=== PATIENT | male | born 1995 | race Caucasian/White ===

== ENCOUNTER 2016-12-27 20:11 | Emergency (ER) | payer OTHER ==
[2016-12-27 20:15] VITALS: RESP 16
--- NOTE | 2016-12-27 20:35 | ED ---
General Adult HPI - General Chief complaint: Extremity Injury, Lower Stated complaint: left ankle injury Time Seen by Provider: 12/27/16 20:17 Source: patient, RN notes reviewed Mode of arrival: wheelchair Limitations: no limitations - History of Present Illness Initial comments: This is a 21-year-old male who presents to the emergency department with chief complaint of left ankle pain. He reports that his left ankle has been hurting for about one month. Patient states that approximately one month ago at work he fell 7 feet down from a ladder and landed on his left foot. Patient states that today while at home he went up on his tiptoes and has been unable to bear weight onto his left foot. Patient states that he notices left foot and ankle have been swollen today as well. Patient reports there is no pain when he is not bearing weight but rates his pain as 7-8/10 while bearing weight. Denies fever, chills, chest pain, shortness of breath, abdominal pain, nausea or vomiting, constipation or diarrhea, dysuria or hematuria, numbness or tingling, headache or vision changes. - Related Data Previous Rx's Medication Instructions Recorded Amoxicillin/Potassium Clav 1 each PO Q12HR #28 tab 11/24/15 [Augmentin 875-125 Tablet] Hydrocodone/Acetaminophen [[place] 1 each PO Q4HR PRN #10 tab 11/24/15 5-325] Ibuprofen 600 mg PO Q6HR #30 tablet 12/27/16 Allergies Allergy/AdvReac Type Severity Reaction Status Date / Time No Known Allergies Allergy Verified 12/27/16 20:16 Review of Systems ROS Statement: Those systems with pertinent positive or pertinent negative responses have been documented in the HPI. ROS Other: All systems not noted in ROS Statement are negative. Past Medical History Past Medical History: No Reported History History of Any Multi-Drug Resistant Organisms: None Reported Past Surgical History: No Surgical Hx Reported Past Psychological History: No Psychological Hx Reported Smoking Status: Current every day smoker Past Alcohol Use History: Occasional Past Drug Use History: Marijuana General Exam - General Exam Comments Initial Comments: General: Awake and alert, well-developed; in no apparent distress. HEENT: Head atraumatic, normocephalic. Pupils are equal, round and reactive to light. Extraocular movements intact. Neck: Supple. Normal ROM. Cardiovascular: Regular rate and rhythm. No murmurs, rubs or gallops. Chest symmetrical. Respiratory: Lungs clear to auscultation bilaterally. No wheezes, rales or rhonchi. Normal respiratory effort with no use of accessory muscles. Musculoskeletal: Left foot has mild swelling at the medial aspect and around lateral malleolus. No erythema or discoloration noted. Left ankle has normal range of motion. Pain is elicited with inversion of the ankle. No bony point tenderness. Sensation is intact and strength 5/5. Pedal pulses 2+ equal palpable bilaterally. Skin: [place], warm and dry without rashes or lesions. Neurological: Alert and oriented x3. CN II-XII grossly intact. Speech is fluent and answers are appropriate. No focal neuro deficits. Psychiatric: Normal mood and affect. No overt signs of depression or anxiety noted. Limitations: no limitations Course Vital Signs 12/27/16 12/27/16 20:13 21:26 Temperature 98.1 F 98 F Pulse Rate 98 81 Respiratory 16 16 Rate Blood Pressure 139/73 139/70 O2 Sat by Pulse 99 98 Oximetry Medical Decision Making - Medical Decision Making This is a 21-year-old male who presents with left ankle pain. X-ray revealed no acute fracture, dislocation or other abnormalities. Patient will be discharged home with recommendation to use ice, elevate and compression. He is advised to use ibuprofen or Tylenol as needed for pain. Left ankle air stirrup cast was placed. Patient voices understanding and is agreeable to the plan. All questions were answered. - Radiology Data Radiology results: report reviewed Left ankle x-ray findings: There is a 5 mm well corticated calcified fragment projecting distal to the fibular tip, not appearing to represent acute injury. The mortise is intact. There is no acute fracture or malalignment and the soft tissues are unremarkable. Disposition Clinical Impression: Left ankle sprain Disposition: HOME SELF-CARE Condition: Good Instructions: Ankle Sprain (ED) Additional Instructions: Please take medications as prescribed. Please follow up with primary care provider within 1-2 days. Return to emergency department if symptoms should worsen or any concerns arise. Prescriptions: Ibuprofen 600 mg PO Q6HR #30 tablet Referrals: None,Stated [Primary Care Provider] - 1-2 days Time of Disposition: 21:23
--- NOTE | 2016-12-27 21:02 | XR ---
PROCEDURE: XR ankle complete LT DATE AND TIME: 12/27/2016 8:56 PM REFERRING PHYSICIAN: Candie Cortés CLINICAL INDICATION: [facility], Pain TECHNIQUE: Department protocol. COMPARISON: None FINDINGS: There is a 5 mm well-corticated calcified fragment projecting distal to the fibular tip, no t appearing to represent acute injury. The mortise is intact. There is no acute fracture or malalignment and the soft tissues are unremarkab le. IMPRESSION: NO ACUTE PROCESS.
[2016-12-27 21:28] VITALS: BP 139/70; PULSE 81; TEMP 98
== END 2016-12-27 21:26 | disposition home or self-care (01) ==
LOC: EC 20:11
DX: S93.402A Sprain of unspecified ligament of left ankle, initial encounter (principal); F17.200 Nicotine dependence, unspecified, uncomplicated; W11.XXXA Fall on and from ladder, initial encounter
CPT/HCPCS: 99283 ×2; 73610; L4350